=== PATIENT | female | born 1955 | race Caucasian/White ===

== ENCOUNTER 2019-06-22 08:47 | Inpatient (IN) | payer OTHER ==
[2019-06-22] VITALS (30 sets, daily range): BP systolic 104–157; BP diastolic 56–83; PULSE 71–114; RESP 11–20; Ht 149.9 cm; Wt 51.5 kg
[~2019-06-22] VITALS: Ht 149.9 cm; Wt 51.5 kg
[~2019-06-22 08:47] MED LIST: ACETAMINOPHEN 500 MG TAB PO ONE; AMLO-145 ORAL; ASPI-1044 PO; CEFAZOLIN 1 GM/50 ML (PMX) 50 ML IVPB ONE; DEXAMETHASONE 4 MG/ML 1 ML INJ IV ONE; HYDR-3671 ORAL; HYDR25TA6 ORAL; LACTATED RINGER'S 1,000 ML IV SCH; LANSOPRAZOLE 30 MG CAP PO ONE; LOSA100T15 ORAL; ONDANSETRON 4 MG INJ IV ONE; ROPIVACAINE 0.2% 60 ML, morphine SULFATE (PF) 4 MG, CLONIDINE 100 MCG, EPINEPHrine 0.3 MG INJ SCH; oxyCODONE (CR) 10 MG TAB [oxyCONTIN] PO ONE
[2019-06-22] MEDS ORDERED: CEFAZOLIN 1 GM INJ ONE (09:59)
[2019-06-22] MEDS ORDERED: ONDANSETRON 4 MG INJ ONE (09:59)
[2019-06-22] MEDS ORDERED: DEXAMETHASONE 4 MG/ML 5 ML INJ ONE (09:59)
[2019-06-22] MEDS ORDERED: GLYCOPYRROLATE 0.4 MG INJ ONE (09:59)
[2019-06-22] MEDS ORDERED: FENTAnyl 50 MCG/ML VIAL ONE (09:59)
[2019-06-22] MEDS ORDERED: PROPOFOL 20 ML ONE (09:59)
[2019-06-22] MEDS ORDERED: ROCURONIUM 50 MG INJ ONE (09:59)
[2019-06-22] MEDS ORDERED: MIDAZOLAM 1 MG/ML 2 ML INJ ONE (09:59)
[2019-06-22] MEDS ORDERED: NEOSTIGMINE 3 MG/3 ML SYRINGE ONE (09:59)
[2019-06-22] MEDS ORDERED: TRANEXAMIC ACID 1 GM/100 ML (PMX) ONE (10:00)
[2019-06-22] MEDS ORDERED: morphine SULFATE/PF (10 MG/10 ML) INJ ONE (10:00)
[2019-06-22] MEDS ORDERED: ROPIVACAINE 0.5 % 30 ML VIAL ONE (10:00)
--- NOTE | 2019-06-22 10:45 | PREAC ---
Date/Time of Note Date/Time of Note DATE: 06/22/19 TIME: 10:43 Anesthesia Eval and Record Evaluation Time Pre-Procedure Interview DATE: 06/22/19 TIME: 10:43 Age 64 Sex female NPO: 8 hrs Preoperative diagnosis left knee primary oa Planned procedure left total knee arthroplasty Past Medical History Past Medical History: Includes Cardio: HTN Surgery & Anesthesia Issues No known issue Meds Anticoagulation: No Beta Hao within 24 hr: No Reason Beta Hao not given: Pt. not on B-Hao Reported Medications Hydralazine Hcl* (Hydralazine Hcl*) 25 Mg Tab, 1 TAB ORAL DAILY 06/22/19 Hydrochlorothiazide* (Hydrochlorothiazide*) 25 Mg Tab, 1 TAB ORAL DAILY 06/22/19 Losartan Potassium* (Losartan Potassium*) 100 Mg Tablet, 1 TAB ORAL DAILY 06/22/19 Amlodipine Besylate* (Amlodipine Besylate*) 5 Mg Tablet, 1 TAB ORAL DAILY 06/22/19 Current Medications Lactated Ringer's 1,000 ml @ 125 mls/hr Q8H IV Last administered on 06/22/19at 09:59; Admin Dose 125 MLS/HR; Start 06/22/19 at 06:00; Stop 06/22/19 at 13:59 Ropivacaine/ Morphine Sulfate/ Clonidine/ Epinephrine/ Ketorolac Tromethamine/ Vancomycin HCl/ Sodium Chloride INTRA-OP INJ ; Start 06/22/19 at 08:00; Stop 06/22/19 at 14:00 Meds reviewed: Yes Allergies Coded Allergies: No Known Allergies (Verified Allergy, Unknown, 06/22/19) Allergies Reviewed: Yes Labs/Studies Labs Reviewed: Reviewed by anesthesiologist test: N/A Studies: ECG (NL), CXR (DJD THORACIC SPINE) Pre-procedure Exam Last vitals Vital Signs Date Temp Pulse Resp B/P (MAP) Pulse Ox O2 O2 Flow FiO2 Time Delivery Rate 06/22/19 97.5 91 16 157/81 99 Room Air 09:46 (106) Airway: Adequate mouth opening, Adequate thyromental dist Mallampati: Mallampati II Teeth: Abnormal (UPPER DENTURES) Lung: Normal Heart: Normal ASA Physical Status ASA physical status: 2 Emergency: None Planned Anesthetic General/MAC: ETT Neuraxial: Spinal Nerve block: Femoral (left) Planned Pain Management Sub-arachniod narcotics, Single shot nerve block, Parenteral pain med Pre-operative Attestations Prior to commencing anesthesia and surgery, the patient was re-evaluated, there was verification of: *The patient's identity *The results of appropriate recent lab work and preoperative vital signs *The above evaluation not changing prior to induction *Anesthetic plan, risk benefits, alternative and complications discussed with patient/family; questions answered; patient/family understands, accepts and wishes to proceed. Puneet Jorgensen M.D. Jun 22, 2019 10:45
[2019-06-22] MEDS ORDERED: DIPHENHYDRAMINE 50 MG INJ IV PRN ×2 (11:00)
[2019-06-22] MEDS ORDERED: hydrALAzine 20 MG INJ IV PRN (11:00)
[2019-06-22] MEDS ORDERED: NALOXONE (0.4 MG/ML) INJ IV PRN ×2 (11:00→13:30)
[2019-06-22] MEDS ORDERED: LABETALOL HCL 20MG INJ IV PRN (11:00)
[2019-06-22] MEDS ORDERED: HYDROmorphONE 0.5 MG/0.5 ML SYG IV PRN ×2 (11:00)
[2019-06-22] MEDS ORDERED: ZOLPIDEM 5 MG TAB PO PRN (11:00)
[2019-06-22] MEDS ORDERED: MEPERIDINE 25 MG INJ IV PRN (11:00)
[2019-06-22] MEDS ORDERED: TRIMETHOBENZAMIDE 100 MG/ML VIAL IM PRN ×2 (11:00)
[2019-06-22] MEDS ORDERED: ONDANSETRON 4 MG INJ IV PRN ×2 (11:00)
[2019-06-22] MEDS ORDERED: HYDROmorphONE 1 MG/5 ML IV SYRINGE IV PRN ×3 (11:00)
[2019-06-22] MEDS ORDERED: EPHEDrine 25 MG/5 ML SYG IV PRN (11:00)
[2019-06-22] MEDS ORDERED: ALBUTEROL 0.083% (NEB) 2.5 MG/3 ML AMP HHN PRN (11:00)
[2019-06-22] MEDS ORDERED: FENTAnyl 50 MCG/ML VIAL IV PRN ×3 (11:00)
[2019-06-22] MEDS ORDERED: OXYCODONE/ACETAMINOPHEN (5/325) TAB PO PRN ×2 (11:00)
[2019-06-22] MEDS ORDERED: NALBUPHINE HCL (10 MG/1 ML) INJ IV PRN (11:00)
[2019-06-22] MEDS ORDERED: MIDAZOLAM 1 MG/ML 2 ML INJ IV PRN (11:00)
[2019-06-22] MEDS ORDERED: IPRATROPIUM (NEB) 0.5 MG/2.5 ML AMP HHN PRN (11:00)
[2019-06-22] MEDS ORDERED: POLYMYXIN B 500000 UNIT INJ ONE (11:05)
--- NOTE | 2019-06-22 11:15 | HPN ---
Date/Time of Note Date/Time of Note DATE: 06/22/19 TIME: 11:14 Interval H&P Admission Note Pt. seen H&P reviewed: No system changes CLEVELAND GARCIA MD Jun 22, 2019 11:15
[2019-06-22] MEDS: TRANEXAMIC ACID 1GM/100ML(PMX) 100 ML PRE-OP X1 IVPB ONE ×3 (11:20→12:05)
[2019-06-22] MEDS ORDERED: BACITRACIN 50000 UNITS INJ IRR ONE (12:03)
[2019-06-22] MEDS: TRANEXAMIC ACID 1GM/100ML(PMX) 100 ML INTRA-OP X1 IVPB ONE ×2 (12:06→12:34)
--- NOTE | 2019-06-22 13:21 | SIPON ---
Date/Time of Note Date/Time of Note DATE: 06/22/19 TIME: 13:20 Operative Report Preoperative Diagnosis Left Knee Osteoarthritis Postoperative Diagnosis Same Operation/Procedure Performed Left Total Knee Arthroplasty Surgeon Edwin John MD nurse practitioner physicians assistant FAM Hernadez Anesthesia: spinal Estimated blood loss: other Transfusion Required none Specimen bone Grafts/Implants none Complications none EDWIN JOHN MD Jun 22, 2019 13:21
--- NOTE | 2019-06-22 13:28 | OPR ---
Date/Time of Note Date/Time of Note DATE: 06/22/19 TIME: 13:24 Operative Report Free Text/Dictation DATE OF OPERATION: June 22, 2019 SURGEON: Cleveland Garcia MD GENERATOR ASSEMBLER: Anu Chan PA-C PREOPERATIVE DIAGNOSIS: Left knee osteoarthritis. POSTOPERATIVE DIAGNOSIS: Left knee osteoarthritis. PROCEDURES PERFORMED: Left total knee arthroplasty, CPT code 63881. ANESTHESIOLOGIST: Dr. Jorgensen ANESTHESIA: Spinal. ESTIMATED BLOOD LOSS: 200 mL. COMPLICATIONS: None. SPECIMENS: Resected bone. DISPOSITION: PACU in stable condition. TOURNIQUET TIME: 47 minutes at 250 mmHg. IMPLANT USED: [employer]hew size 1 Virgie tibial baseplate, size 2 poste rior stabilized Oxinium femur, size 13 mm high flexion polyethylene, size 26 mm patella. INDICATION FOR PROCEDURE: This is an 64-year-old female with end-stage osteoarthritis of the left knee who had failed nonoperative management. Risks, benefits, alternatives of surgical intervention were discussed with the patient and informed consent was obtained. The risks of surgery include but are not limited to infection, deep venous thrombosis, pulmonary embolism, damage to nerves and blood vessels, numbness around incision site, stiffness of knee, need for total knee manipulation under anesthesia, need for blood transfuion, heart attack, stroke, risks associated with anesthesia, implant loosening, wear of prosthesis, need for revision surgery, and . DESCRIPTION OF PROCEDURE: The patient was met in the preoperative suite. The correct operative site was confirmed and marked. The patient was then brought into operating room. After induction of anesthesia, the patient was placed in the supine position on the operating room table. A tourniquet was applied to left upper thigh. The left lower extremity was prepped and draped in the usual sterile fashion. Before starting, a timeout was taken to identify the correct operative site and confirm preoperative antibiotics consisting of 1 g of IV Ancef, along with 1 g of tranexamic acid were administered. At this point, the left leg was elevated and exsanguinated with an Esmarch and tourniquet was then insufflated for the above noted time. A midline incision was made and median parapatellar arthrotomy was then completed. The lateral patellar retinacular ligaments were released. A sleeve of tissue was released from the medial proximal tibia. The cruciate ligaments and the menisci were then excised. At this point, the custom distal femur cutting block was then pinned and 9.5 mm was resected from the distal femur. The 4-in-1 cutting block, size 2 was then placed. An chey[place] wing was used to confirm that notching of the anterior cortex of the femur would not occur. The anterior and posterior condylar cuts were completed followed by the anterior and posterior chamfer cuts. The osteophytes were then removed with a rongeur. At this point, the tibia was subluxed anteriorly. Appropriate retractors were placed. The custom tibial cutting block was then pinned. The drop was used to ensure the correct alignment. Approximately 11 mm was resected off the lateral tibial plateau and 6 mm off the medial tibial plateau. Osteophytes were then removed. At this point, the flexion extension gaps were checked with a 9 mm gap shipping checker and noted to be loose in both. Next, trial 2 femur was then pinned and the box cut was then completed. The tibia was then subluxed anteriorly and measured to size 1. The tibial tray was then pinned and a keel was then punched. The trial components were placed with a 13 mm polyethylene and noted to have full extension and greater than 120 degrees of flexion. The patella was then subluxed laterally and sized to 21 mm. Approximately, 6 mm was resected. The patellar was sized to 26 mm. The button was placed and noted to have excellent patellar tracking. The trial components were removed. All bony surfaces were pulse lavaged and dried. The appropriate size components were then cemented and the knee was held in extension with a 13 mm trial polyethylene until the cement cured. Once the cement had cured, the trial polyethylene was removed and the appropriate size polyethylene was then placed. The tranexamic acid was redosed. The cocktail was then injected. The extensor mechanism was closed using #1 Stratafix and the subcutaneous tissue with 2-0 Vicryl and the skin with 4-0 Monocryl. Steri-Strips were applied along with a sterile dressing. There were no complications. The patient was transferred to PACU in stable condition. POSTOPERATIVE CARE: The patient will be weightbearing as tolerated. The patient will work with physical therapy, and will receive two additional doses of IV antibiotics along with aspirin 81 mg p.o. b.i.d. for 6 weeks. Upon discharge, patient will follow up in my office within 2 weeks postoperatively. CLEVELAND GARCIA MD Jun 22, 2019 13:27
[2019-06-22] MEDS ORDERED: NA PHOSPHATE/BIPHOS 133 ML ENEMA PR PRN (13:30)
[2019-06-22] MEDS ORDERED: MAGNESIUM HYDROXIDE 30ML CUP PO PRN (13:30)
[2019-06-22] MEDS ORDERED: KETOROLAC 15 MG INJ IV PRN (13:30)
[2019-06-22] MEDS ORDERED: NACL 0.9% 3 ML SYG IV SCH (13:30)
[2019-06-22] MEDS ORDERED: BISACODYL 10 MG SUPP PR PRN (13:30)
[2019-06-22] MEDS ORDERED: oxyCODONE 5 MG TAB PO PRN (13:30)
[2019-06-22] MEDS ORDERED: DOCUSATE SODIUM 100 MG CAP PO ONE (13:30)
[2019-06-22] MEDS ORDERED: SENNA/DOCUSATE NA (8.6MG/50MG) TAB PO PRN (13:30)
--- NOTE | 2019-06-22 13:57 | PAC ---
Date/Time of Note Date/Time of Note DATE: 06/22/19 TIME: 13:57 Post-Anesthesia Notes Post-Anesthesia Note Last documented vital signs Vital Signs Date Temp Pulse Resp B/P (MAP) Pulse Ox O2 O2 Flow FiO2 Time Delivery Rate 06/22/19 97.8 13:47 06/22/19 91 16 157/81 99 Room Air 09:46 (106) Activity: WNL Respiratory function: WNL Cardiovascular function: WNL Mental status: Baseline Pain reasonably controlled: Yes Hydration appropriate: Yes Nausea/Vomiting absent: Yes Puneet Jorgensen M.D. Jun 22, 2019 13:57
[2019-06-22] MEDS: CEFAZOLIN 2 GM/50 ML (PMX) 50 ML IVPB SCH ×2 (14:17→22:51)
--- NOTE | 2019-06-22 14:34 | CONS ---
Assessment/Plan Assessment/Plan Assessment/Plan (Daily) 64 yo woman with history of HTN admitted after elective L total knee arthroplasty. #status post L total knee arthroplasty - Weight bearing, PT per ortho - Anticoagulation per ortho. - Pain control per ortho #Hypertension - I will resume the patient's four home antihypertensives. Internal medicine will continue to follow. Consultation Date/Type/Reason Admit Date/Time Jun 22, 2019 at 08:47 Date of Consultation: Jun 22, 2019 Type of Consult Internal Medicine Reason for Consultation Postoperative management Requesting Provider: CLEVELAND GARCIA MD Date/Time of Note DATE: 06/22/19 TIME: 14:26 Hx of Present Illness Ms. Rand is a pleasant 64 yo woman with history of hypertension with bilateral knee osteoarthritis. She is admitted after scheduled left total knee arthroplasty. She is doing well with no complaints. She has history of HTN and takes her four medications regu larly. 12 point reivew of systems done, negative except per HPI. Past Medical History Hypertension Home Meds Reported Medications Hydralazine Hcl* (Hydralazine Hcl*) 25 Mg Tab, 1 TAB ORAL DAILY 06/22/19 Hydrochlorothiazide* (Hydrochlorothiazide*) 25 Mg Tab, 1 TAB ORAL DAILY 06/22/19 Losartan Potassium* (Losartan Potassium*) 100 Mg Tablet, 1 TAB ORAL DAILY 06/22/19 Amlodipine Besylate* (Amlodipine Besylate*) 5 Mg Tablet, 1 TAB ORAL DAILY 06/22/19 Medications Current Medications Hydromorphone HCl (Dilaudid) 0.2 mg PACU PRN IV MILD PAIN 1-3; Start 06/22/19 at 11:00; Stop 06/22/19 at 18:00 Hydromorphone HCl (Dilaudid) 0.4 mg PACU PRN IV MOD PAIN 4-6; Start 06/22/19 at 11:00; Stop 06/22/19 at 18:00 Hydromorphone HCl (Dilaudid) 0.6 mg PACU PRN IV SEVERE PAIN 7-10; Start 06/22/19 at 11:00; Stop 06/22/19 at 18:00 Fentanyl (Sublimaze) 25 mcg PACU ORDER PRN IV MILD PAIN 1-3; Start 06/22/19 at 11:00; Stop 06/22/19 at 18:00 Fentanyl (Sublimaze) 50 mcg PACU ORDER PRN IV MOD PAIN 4-6; Start 06/22/19 at 11:00; Stop 06/22/19 at 18:00 Fentanyl (Sublimaze) 75 mcg PACU ORDER PRN IV SEVERE PAIN 7-10; Start 06/22/19 at 11:00; Stop 06/22/19 at 18:00 Oxycodone/ Acetaminophen (Percocet (5/ 325)) 1 tab PACU ORDER PRN PO .PAIN 1-5; Start 06/22/19 at 11:00; Stop 06/22/19 at 18:00 Oxycodone/ Acetaminophen (Percocet (5/ 325)) 2 tab PACU ORDER PRN PO .PAIN 6-10; Start 06/22/19 at 11:00; Stop 06/22/19 at 18:00 Ondansetron HCl (Zofran Inj) 4 mg PACU ORDER PRN IV NAUSEA/VOMITING; Start 06/22/19 at 11:00; Stop 06/22/19 at 18:00 Trimethobenzamide HCl (Tigan) 200 mg PACU ORDER PRN IM NAUSEA/VOMITING; Start 06/22/19 at 11:00; Stop 06/22/19 at 18:00 Labetalol HCl (Labetalol) 5 mg PACU ORDER PRN IV HIGH BLOOD PRESSURE; Start 06/22/19 at 11:00; Stop 06/22/19 at 18:00 Hydralazine HCl (Apresoline) 5 mg PACU ORDER PRN IV HIGH BLOOD PRESSURE; Start 06/22/19 at 11:00; Stop 06/22/19 at 18:00 Ephedrine Sulfate 5 mg PACU ORDER PRN IV BLOOD PRESSURE SUPPORT; Start 06/22/19 at 11:00; Stop 06/22/19 at 18:00 Albuterol (Proventil 0.083% (Neb)) 2.5 mg PACU ORDER PRN HHN .WHEEZING; Start 06/22/19 at 11:00; Stop 06/22/19 at 18:00 Ipratropium [place] (Atrovent 0.02% (Neb)) 0.5 mg PACU ORDER PRN HHN .WHEEZING; Start 06/22/19 at 11:00; Stop 06/22/19 at 18:00 Meperidine HCl (Demerol) 25 mg PACU ORDER PRN IV .RIGORS; Start 06/22/19 at 11 :00; Stop 06/22/19 at 18:00 Diphenhydramine HCl (Benadryl) 25 mg PACU ORDER PRN IV .PRURITUS; Start 06/22/19 at 11:00; Stop 06/22/19 at 18:00 Midazolam HCl (Versed) 0.5 mg PACU ORDER PRN IV .ANXIETY; Start 06/22/19 at 11:00; Stop 06/22/19 at 18:00 Hydromorphone HCl (Dilaudid) 0.2 mg Q2H PRN IV .PAIN 1-5; Start 06/22/19 at 11:00; Stop 06/23/19 at 11:15 Hydromorphone HCl (Dilaudid) 0.4 mg Q2H PRN IV .PAIN 6-10; Start 06/22/19 at 11:00; Stop 06/23/19 at 11:15 Diphenhydramine HCl (Benadryl) 25 mg Q4H PRN IV .PRURITUS; Start 06/22/19 at 11:00; Stop 06/23/19 at 11:15 Nalbuphine HCl (Nubain) 10 mg Q4H PRN IV .PRURITUS; Start 06/22/19 at 11:00; St op 06/23/19 at 11:15 Ondansetron HCl (Zofran Inj) 4 mg Q6H PRN IV .NAUSEA/VOMITING; Start 06/22/19 at 11:00; Stop 06/23/19 at 11:15 Trimethobenzamide HCl (Tigan) 200 mg Q6H PRN IM .NAUSEA/VOMITING; Start 06/22/19 at 11:00; Stop 06/23/19 at 11:15 Zolpidem Tartrate (Ambien) 5 mg HS MAY REPEAT X 1 PRN PO .INSOMNIA; Start 06/22/19 at 11:00; Stop 06/23/19 at 11:15 Naloxone HCl (Narcan) 0.2 mg Q2M PRN IV .RESP RATE; Start 06/22/19 at 11:00; Stop 06/23/19 at 11:15 Miscellaneous Information (* Miscellaneous Pharmacy Order) DURAMORPH: 0.1 MG EPIDU... GIVEN NEURAXIAL XX ; Start 06/22/19 at 11:00 IV Flush (NS 3 ml) 3 ml PER PROTOCOL IV ; Start 06/22/19 at 13:30 Oxycodone HCl (Roxicodone) 5 mg Q4H PRN PO .PAIN; Start 06/22/19 at 13:30 Ketorolac Tromethamine (Toradol) 15 mg Q6H PRN IV .PAIN; Start 06/22/19 at 13:30 Cefazolin Sodium/ Dextrose 50 ml @ 100 mls/hr Q8H IVPB Last administered on 06/22/19at 14:17; Admin Dose 100 MLS/HR; Start 06/22/19 at 13:30; Stop 06/23/19 at 05:59 Celecoxib (Celebrex) 100 mg BID PO ; Start 06/23/19 at 09:00 Gabapentin (Neurontin) 100 mg TID PO ; Start 06/22/19 at 21:00 Pantoprazole (Protonix Tab) 40 mg DAILY@06 PO ; Start 06/24/19 at 06:00 Docusate Sodium (Colace) 200 mg BID PO ; Start 06/23/19 at 09:00; Stop 06/26/19 at 08:59 Simethicone (Mylicon) 80 mg TID PRN PO .GAS; Start 06/22/19 at 13:30 Senna/Docusate Sodium (Senokot-S) 2 tab BID PRN PO .CONSTIPATION; Start 06/22/19 at 13:30 Magnesium Hydroxide (Milk Of Mag) 30 ml HS PRN PO .CONSTIPATION; Start 06/22/19 at 13:30 Bisacodyl (Dulcolax Supp) 10 mg DAILY PRN MA .CONSTIPATION; Start 06/22/19 at 13:30 Sodium Biphosphate/ Sodium Phosphate (Fleet Enema) 133 ml DAILY PRN MA .CONSTIPATION; Start 06/22/19 at 13:30 Naloxone HCl (Narcan) 0.2 mg Q2M PRN IV .RESP RATE; Start 06/22/19 at 13:30 Aspirin (Halfprin) 81 mg BID PO ; Start 06/23/19 at 09:00 Allergies: Coded Allergies: No Known Allergies (Verified Allergy, Unknown, 06/22/19) Past Surgical History Bladder surgery Social History Alcohol Use: none Smoking Status: Never smoker Drug Use: none Exam/Review of Systems Exam Vitals Vital Signs Date Temp Pulse Resp B/P (MAP) Pulse Ox O2 O2 Flow FiO2 Time Delivery Rate 06/22/19 101 16 131/78 100 Nasal 14:20 (95) Cannula 06/22/19 2.0 14:05 06/22/19 97.8 13:47 Exam Gen: Well appearing woman in no acute distress. Eyes: PERRL, no icterus HEENT: Moist mucous membranes, clear oropharynx Neck: Supple, no lymphadenopathy, no jugular venous distension Card: Regular rate and rhythm, no murmurs Pulm: Clear to auscultation bilaterally. Abd: Soft, nontender to palpation, nondistended. Normoactive bowel sounds. Ext: Left knee bandaged. DP pulse 2+, sensation and toe wiggle intact. No edema bilaterally. Skin: No jaundice. Warm, dry, well perfused. Medications Medication Current Medications Hydromorphone HCl (Dilaudid) 0.2 mg PACU PRN IV MILD PAIN 1-3; Start 06/22/19 at 11:00; Stop 06/22/19 at 18:00 Hydromorphone HCl (Dilaudid) 0.4 mg PACU PRN IV MOD PAIN 4-6; Start 06/22/19 at 11:00; Stop 06/22/19 at 18:00 Hydromorphone HCl (Dilaudid) 0.6 mg PACU PRN IV SEVERE PAIN 7-10; Start 06/22/19 at 11:00; Stop 06/22/19 at 18:00 Fentanyl (Sublimaze) 25 mcg PACU ORDER PRN IV MILD PAIN 1-3; Start 06/22/19 at 11:00; Stop 06/22/19 at 18:00 Fentanyl (Sublimaze) 50 mcg PACU ORDER PRN IV MOD PAIN 4-6; Start 06/22/19 at 11:00; Stop 06/22/19 at 18:00 Fentanyl (Sublimaze) 75 mcg PACU ORDER PRN IV SEVERE PAIN 7-10; Start 06/22/19 at 11:00; Stop 06/22/19 at 18:00 Oxycodone/ Acetaminophen (Percocet (5/ 325)) 1 tab PACU ORDER PRN PO .PAIN 1-5; Start 06/22/19 at 11:00; Stop 06/22/19 at 18:00 Oxycodone/ Acetaminophen (Percocet (5/ 325)) 2 tab PACU ORDER PRN PO .PAIN 6-10; Start 06/22/19 at 11:00; Stop 06/22/19 at 18:00 Ondansetron HCl (Zofran Inj) 4 mg PACU ORDER PRN IV NAUSEA/VOMITING; Start 06/22/19 at 11:00; Stop 06/22/19 at 18:00 Trimethobenzamide HCl (Tigan) 200 mg PACU ORDER PRN IM NAUSEA/VOMITING; Start 06/22/19 at 11:00; Stop 06/22/19 at 18:00 Labetalol HCl (Labetalol) 5 mg PACU ORDER PRN IV HIGH BLOOD PRESSURE; Start 06/22/19 at 11:00; Stop 06/22/19 at 18:00 Hydralazine HCl (Apresoline) 5 mg PACU ORDER PRN IV HIGH BLOOD PRESSURE; Start 06/22/19 at 11:00; Stop 06/22/19 at 18:00 Ephedrine Sulfate 5 mg PACU ORDER PRN IV BLOOD PRESSURE SUPPORT; Start 06/22/19 at 11:00; Stop 06/22/19 at 18:00 Albuterol (Proventil 0.083% (Neb)) 2.5 mg PACU ORDER PRN HHN .WHEEZING; Start 06/22/19 at 11:00; Stop 06/22/19 at 18:00 Ipratropium [place] (Atrovent 0.02% (Neb)) 0.5 mg PACU ORDER PRN HHN .WHEEZING; Start 06/22/19 at 11:00; Stop 06/22/19 at 18:00 Meperidine HCl (Demerol) 25 mg PACU ORDER PRN IV .RIGORS; Start 06/22/19 at 11:00; Stop 06/22/19 at 18:00 Diphenhydramine HCl (Benadryl) 25 mg PACU ORDER PRN IV .PRURITUS; Start 06/22/19 at 11:00; Stop 06/22/19 at 18:00 Midazolam HCl (Versed) 0.5 mg PACU ORDER PRN IV .ANXIETY; Start 06/22/19 at 11:00; Stop 06/22/19 at 18:00 Hydromorphone HCl (Dilaudid) 0.2 mg Q2H PRN IV .PAIN 1-5; Start 06/22/19 at 11:00; Stop 06/23/19 at 11:15 Hydromorphone HCl (Dilaudid) 0.4 mg Q2H PRN IV .PAIN 6-10; Start 06/22/19 at 11:00; Stop 06/23/19 at 11:15 Diphenhydramine HCl (Benadryl) 25 mg Q4H PRN IV .PRURITUS; Start 06/22/19 at 11:00; Stop 06/23/19 at 11:15 Nalbuphine HCl (Nubain) 10 mg Q4H PRN IV .PRURITUS; Start 06/22/19 at 11:00; Stop 06/23/19 at 11:15 Ondansetron HCl (Zofran Inj) 4 mg Q6H PRN IV .NAUSEA/VOMITING; Start 06/22/19 at 11:00; Stop 06/23/19 at 11:15 Trimethobenzamide HCl (Tigan) 200 mg Q6H PRN IM .NAUSEA/VOMITING; Start 06/22/19 at 11:00; Stop 06/23/19 at 11:15 Zolpidem Tartrate (Ambien) 5 mg HS MAY REPEAT X 1 PRN PO .INSOMNIA; Start 06/22/19 at 11:00; Stop 06/23/19 at 11:15 Naloxone HCl (Narcan) 0.2 mg Q2M PRN IV .RESP RATE; Start 06/22/19 at 11:00; Stop 06/23/19 at 11:15 Miscellaneous Information (* Miscellaneous Pharmacy Order) DURAMORPH: 0.1 MG EPIDU... GIVEN NEURAXIAL XX ; Start 06/22/19 at 11:00 IV Flush (NS 3 ml) 3 ml PER PROTOCOL IV ; Start 06/22/19 at 13:30 Oxycodone HCl (Roxicodone) 5 mg Q4H PRN PO .PAIN; Start 06/22/19 at 13:30 Ketorolac Tromethamine (Toradol) 15 mg Q6H PRN IV .PAIN; Start 06/22/19 at 13:30 Cefazolin Sodium/ Dextrose 50 ml @ 100 mls/hr Q8H IVPB Last administered on 06/22/19at 14:17; Admin Dose 100 MLS/HR; Start 06/22/19 at 13:30; Stop 06/23/19 at 05:59 Celecoxib (Celebrex) 100 mg BID PO ; Start 06/23/19 at 09:00 Gabapentin (Neurontin) 100 mg TID PO ; Start 06/22/19 at 21:00 Pantoprazole (Protonix Tab) 40 mg DAILY@06 PO ; Start 06/24/19 at 06:00 Docusate Sodium (Colace) 200 mg BID PO ; Start 06/23/19 at 09:00; Stop 06/26/19 at 08:59 Simethicone (Mylicon) 80 mg TID PRN PO .GAS; Start 06/22/19 at 13:30 Senna/Docusate Sodium (Senokot-S) 2 tab BID PRN PO .CONSTIPATION; Start 06/22/19 at 13:30 Magnesium Hydroxide (Milk Of Mag) 30 ml HS PRN PO .CONSTIPATION; Start 06/22/19 at 13:30 Bisacodyl (Dulcolax Supp) 10 mg DAILY PRN MA .CONSTIPATION; Start 06/22/19 at 13:30 Sodium Biphosphate/ Sodium Phosphate (Fleet Enema) 133 ml DAILY PRN MA .CONSTI PATION; Start 06/22/19 at 13:30 Naloxone HCl (Narcan) 0.2 mg Q2M PRN IV .RESP RATE; Start 06/22/19 at 13:30 Aspirin (Halfprin) 81 mg BID PO ; Start 06/23/19 at 09:00 MIRIAN BOLAÑOS MD Jun 22, 2019 14:34
[2019-06-22] MEDS: GABAPENTIN 100 MG CAP PO SCH (21:17)
[2019-06-23 04:15] VITALS: BP 108/59; PULSE 76; RESP 18
[2019-06-23] MEDS: CEFAZOLIN 2 GM/50 ML (PMX) 50 ML IVPB SCH (05:35)
[2019-06-23 08:10] VITALS: BP 102/55; PULSE 75; RESP 18
[2019-06-23] MEDS: CELECOXIB 100 MG CAP PO SCH ×2 (08:53→20:06)
[2019-06-23] MEDS: ASPIRIN (EC) 81 MG TAB PO SCH ×2 (08:54→20:05)
[2019-06-23] MEDS: GABAPENTIN 100 MG CAP PO SCH ×3 (08:54→20:05)
[2019-06-23] MEDS ORDERED: DOCUSATE SODIUM 100 MG CAP PO SCH (09:00)
[2019-06-23] MEDS ORDERED: LOSARTAN 50 MG TAB PO SCH (09:00)
[2019-06-23] MEDS ORDERED: AMLODIPINE 5 MG TAB PO SCH (09:00)
[2019-06-23] MEDS ORDERED: HYDROCHLOROTHIAZIDE 25 MG TAB PO SCH (09:00)
--- NOTE | 2019-06-23 10:09 | CONS ---
Assessment/Plan Assessment/Plan Assessment/Plan (Daily) 64 yo woman with history of HTN admitted after elective L total knee arthroplasty. #status post L total knee arthroplasty - Ambulating well with physical therapy. - Pain controlled well with only gabapentin. - I agree with aspirin 81 BID for DVT prophylaxis. #Hypertension - She is on amlodipine, HCTZ, losartan, and hydralazine for HTN. - These are all held this morning due to BP 102/55. - I anticipate the next BP reading will be much higher; okay to delay anti- HTNsives until then. If still borderline, at least her amlodipine and HCTZ should be given today. These are very unlikely to cause a sudden BP drop. The patient is medically clear for discharge from my perspective. I will continue to see her as long as she is in the hospital. Consultation Date/Type/Reason Admit Date/Time Jun 22, 2019 at 08:47 Initial Consult Date 06/22/19 Type of Consult Internal Medicine Requesting Provider: CLEVELAND GARCIA MD Date/Time of Note DATE: 06/23/19 TIME: 10:05 24 HR Interval Summary Free Text/Dictation The patient is doing very well. She walked this morning with physical therapy and may do stairs later today. Pain adequately controlled with gabapentin only; no opioids needed. Exam/Review of Systems Exam Vitals Vital Signs Date Temp Pulse Resp B/P (MAP) Pulse Ox O2 O2 Flow FiO2 Time Delivery Rate 06/23/19 98.3 75 18 102/55 99 Room Air 08:10 (71) 06/23/19 2.0 04:15 Intake and Output 06/22/19 06/22/19 06/23/19 1515:00 23:00 07:00 IntakeIntake Total 2520 ml 1420 ml 100 ml OutputOutput Total 75 ml 2140 ml BalanceBalance 2445 ml -720 ml 100 ml Exam Gen: Well appearing woman in no acute distress. Eyes: PERRL, no icterus HEENT: Moist mucous membranes, clear oropharynx Neck: Supple, no lymphadenopathy, no jugular venous distension Card: Regular rate and rhythm, no murmurs Pulm: Clear to auscultation bilaterally. Abd: Soft, nontender to palpation, nondistended. Normoactive bowel sounds. Ext: Left knee bandaged. DP pulse 2+, sensation and toe wiggle intact. No edema bilaterally. Skin: No jaundice. Warm, dry, well perfused. Results Result Diagram: 06/23/19 0419 06/23/19 0419 Results 24hrs Laboratory Tests Test 06/23/19 04:19 06/23/19 07:16 White Blood Count 14.2 H Red Blood Count 3.08 L Hemoglobin 9.5 L Hematocrit 27.7 L Mean Corpuscular Volume 89.9 Mean Corpuscular Hemoglobin 30.8 Mean Corpuscular Hemoglobin Concent 34.3 Red Cell Distribution Width 12.9 Platelet Count 344 Mean Platelet Volume 8.8 Immature Granulocytes % 0.400 Neutrophils % 88.8 H Lymphocytes % 3.7 L Monocytes % 7.0 Eosinophils % 0.0 Basophils % 0.1 Nucleated Red Blood Cells % 0.0 Immature Granulocytes # 0.060 H Neutrophils # 12.6 H Lymphocytes # 0.5 L Monocytes # 1.0 H Eosinophils # 0.0 Basophils # 0.0 Nucleated Red Blood Cells # 0.0 Sodium Level 134 L Potassium Level 3.5 Chloride Level 101 Carbon Dioxide Level 24 Anion Gap 9 Blood Urea Nitrogen 16 Creatinine 0.52 Est Glomerular Filtrat Rate mL/min > 60 Glucose Level 128 Calcium Level 9.2 Lab Scanned Report REFERENCE LAB Medications Medication Current Medications Hydromorphone HCl (Dilaudid) 0.2 mg Q2H PRN IV .PAIN 1-5; Start 06/22/19 at 11:00; Stop 06/23/19 at 11:15 Hydromorphone HCl (Dilaudid) 0.4 mg Q2H PRN IV .PAIN 6-10; Start 06/22/19 at 11:00; Stop 06/23/19 at 11:15 Diphenhydramine HCl (Benadryl) 25 mg Q4H PRN IV .PRURITUS; Start 06/22/19 at 11:00; Stop 06/23/19 at 11:15 Nalbuphine HCl (Nubain) 10 mg Q4H PRN IV .PRURITUS; Start 06/22/19 at 11:00; Stop 06/23/19 at 11:15 Ondansetron HCl (Zofran Inj) 4 mg Q6H PRN IV .NAUSEA/VOMITING Last administered on 06/22/19at 21:17; Admin Dose 4 MG; Start 06/22/19 at 11:00; Stop 06/23/19 at 11:15 Trimethobenzamide HCl (Tigan) 200 mg Q6H PRN IM .NAUSEA/VOMITING; Start 06/22/19 at 11:00; Stop 06/23/19 at 11:15 Zolpidem Tartrate (Ambien) 5 mg HS MAY REPEAT X 1 PRN PO .INSOMNIA; Start 06/22/19 at 11:00; Stop 06/23/19 at 11:15 Naloxone HCl (Narcan) 0.2 mg Q2M PRN IV .RESP RATE; Start 06/22/19 at 11:00; Stop 06/23/19 at 11:15 Miscellaneous Information (* Miscellaneous Pharmacy Order) DURAMORPH: 0.1 MG EPIDU... GIVEN NEURAXIAL XX ; Start 06/22/19 at 11:00 IV Flush (NS 3 ml) 3 ml PER PROTOCOL IV ; Start 06/22/19 at 13:30 Oxycodone HCl (Roxicodone) 5 mg Q4H PRN PO .PAIN; Start 06/22/19 at 13:30 Ketorolac Tromethamine (Toradol) 15 mg Q6H PRN IV .PAIN; Start 06/22/19 at 13:30 Celecoxib (Celebrex) 100 mg BID PO Last administered on 06/23/19at 08:53; Admin Dose 100 MG; Start 06/23/19 at 09:00 Gabapentin (Neurontin) 100 mg TID PO Last administered on 06/23/19at 08:54; Admin Dose 100 MG; Start 06/22/19 at 21:00 Pantoprazole (Protonix Tab) 40 mg DAILY@06 PO ; Start 06/24/19 at 06:00 Docusate Sodium (Colace) 200 mg BID PO Last administered on 06/23/19at 08:53; Admin Dose 200 MG; Start 06/23/19 at 09:00; Stop 06/26/19 at 08:59 Simethicone (Mylicon) 80 mg TID PRN PO .GAS; Start 06/22/19 at 13:30 Senna/Docusate Sodium (Senokot-S) 2 tab BID PRN PO .CONSTIPATION; Start 06/22/19 at 13:30 Magnesium Hydroxide (Milk Of Mag) 30 ml HS PRN PO .CONSTIPATION; Start 06/22/19 at 13:30 Bisacodyl (Dulcolax Supp) 10 mg DAILY PRN ID .CONSTIPATION; Start 06/22/19 at 1 3:30 Sodium Biphosphate/ Sodium Phosphate (Fleet Enema) 133 ml DAILY PRN ID .CONSTIPATION; Start 06/22/19 at 13:30 Naloxone HCl (Narcan) 0.2 mg Q2M PRN IV .RESP RATE; Start 06/22/19 at 13:30 Aspirin (Halfprin) 81 mg BID PO Last administered on 06/23/19at 08:54; Admin Dose 81 MG; Start 06/23/19 at 09:00 Amlodipine Besylate (Norvasc) 5 mg DAILY PO ; Start 06/23/19 at 09:00 Hydralazine HCl (Apresoline) 25 mg DAILY PO ; Start 06/23/19 at 09:00 Hydrochlorothiazide (Hydrochlorothiazide) 25 mg DAILY PO ; Start 06/23/19 at 09:00 Losartan Potassium (Cozaar) 100 mg DAILY PO ; Start 06/23/19 at 09:00 MIRIAN BOLAÑOS MD Jun 23, 2019 10:09
[2019-06-23 11:07] VITALS: BP 99/54; PULSE 71; RESP 18
[2019-06-23 15:49] VITALS: BP 117/61; PULSE 78; RESP 18
[2019-06-24] MEDS ORDERED: PANTOPRAZOLE (EC) 40 MG TAB PO SCH (06:00)
--- NOTE | 2019-07-05 16:05 | DS ---
DATE OF ADMISSION: 06/22/2019 DATE OF DISCHARGE: 06/23/2019 HOSPITAL COURSE: Ms. Rand underwent a left total knee arthroplasty on 06/22/2019. There were n o complications during the surgery. She was subsequently admitted to the medical floor. She receive d postoperative antibiotics and deep venous thrombosis prophylaxis. She passed physical therapy and was discharged home in stable condition. There were no complications during this hospital stay. She was to follow up in my office within 10 to 14 days postoperatively. Dictated By: CLEVELAND GOMEZ/NTS Conf#: [id number] DID#: [id number]
== END 2019-06-23 20:15 | disposition home health service (06) | DRG 470 ==
LOC: REC 08:47 → MS1 18:15
PROVIDERS: ADMIT Orthopaedic Surgery Adult Reconstructive Orthopaedic Surgery; ATTEND Orthopaedic Surgery Adult Reconstructive Orthopaedic Surgery
PROC: 0SRD069 Replacement of Left Knee Joint with Oxidized Zirconium on Polyethylene Synthetic Substitute, Cemented, Open Approach (ICD-10-PCS; principal; 2019-06-22 11:00)
DX: M17.12 Unilateral primary osteoarthritis, left knee (principal); I10 Essential (primary) hypertension
CPT/HCPCS: 73560; 80048; 85025; 88304; 88311; 97116; 97161; 97530; C1713; J0171; J0690; J0697; J0735; J1100; J1885; J2250; J2274; J2405; J2710; J2795; J3010; J3370; J7120